=== PATIENT | female | born 1955 | race Caucasian/White ===

== ENCOUNTER 2016-11-29 07:40 | Day surgery (SDC) | payer MEDICAID ==
[2016-11-29] MEDS ORDERED: Dextrose 5%-Lactated Ringers 1,000 ML IV SCH (08:30)
[2016-11-29] MEDS ORDERED: Glycopyrrolate 0.2 MG/ML 2 ML SYRINGE IVPUSH ONE (08:30)
[2016-11-29] MEDS ORDERED: Propofol 200 MG/20 ML SDV ONE (09:54)
[2016-11-29] MEDS ORDERED: fentaNYL 100 MCG/2 ML SDV ONE (09:54)
[2016-11-29] MEDS ORDERED: Midazolam 1 MG/ML 2 ML SDV ONE (09:55)
[2016-11-29] MEDS ORDERED: Pantoprazole 40 MG Vial IVPUSH ONE (10:30)
[2016-11-29 12:12] VITALS: BP 128/96
--- NOTE | 2016-11-29 21:44 | OR ---
DATE OF PROCEDURE: 11/29/2016 PREOPERATIVE DIAGNOSIS: Upper abdominal pain. POSTOPERATIVE DIAGNOSIS: Upper abdominal pain associated with erosive gastritis and duodenitis. PROCEDURE: Esophagogastroduodenoscopy with biopsies of antrum for CLOtest. ANESTHESIA: IV sedation. INDICATION FOR PROCEDURE: This is a 61-year-old presenting with some ongoing upper abdominal pain. This occurs probably in the postprandial period. Ultrasound showed a small gallbladder polyp, but not associated with any other thickening of the gallbladder wall or other pathology and a CCK-stimulated HIDA scan had a normal ejection fraction and the patient does not recall back reproducing her symptoms with the CCK injection. She currently is not present on any antisecretory medications. Plan is to rule upper GI endoscopy with biopsies as indicated. Potential risks including bleeding and perforation were discussed, and the patient wishes to proceed. DESCRIPTION OF PROCEDURE: The patient was taken to the operating room and placed in the left lateral decubitus position. IV sedation was administered after which the upper GI endoscope was passed orally through the length of the esophagus into the stomach with retroflexion view of the fundus and thereafter through the pyloric channel and into the proximal duodenum. Normal hypopharynx, larynx, upper esophageal sphincter, and esophageal body. At the EG junction, no significant hiatal hernia or inflammation was identified within the stomach. The proximal stomach was unremarkable. In the antrum, there were some streaks of redness with a few scattered tiny erosions. These were not bleeding, but covered with a small amount of fibrinous exudate. The pyloric channel was unremarkable. There was some duodenitis in the duodenal bulb. Beyond that, the findings normalized. was identified. No pathology was seen there. At this point, the scope was brought back into the antrum where biopsies were obtained for the CLOtest for H. pylori. Minimal bleeding from the biopsy sites were seen and the procedure then concluded. At this point, it would appear likely that the patient's symptoms are related to the gastritis, duodenitis. She will be given 40 mg of Protonix IV in the recovery room and then begin 40 mg Protonix orally daily. If the CLOtest is positive, we will contact regarding H. pylori antibiotic course, otherwise she will follow up with Dr. Echols in [facility] in about 2 weeks. Ok Garcia MD /[id number]
== END 2016-11-29 12:30 | disposition home or self-care (01) ==
LOC: JP.SDS 07:40
PROVIDERS: ATTEND Surgery
DX: K29.00 Acute gastritis without bleeding (principal); K29.80 Duodenitis without bleeding; K82.8 Other specified diseases of gallbladder; I10 Essential (primary) hypertension; F32.9 Major depressive disorder, single episode, unspecified; Z79.899 Other long term (current) drug therapy; Z88.8 Allergy status to other drugs, medicaments and biological substances
CPT/HCPCS: 43239; 87081; C9113; J2250; J2704; J3010; J7042